=== PATIENT | female | born 1995 | race African-American/Black ===

== ENCOUNTER 2020-03-16 12:22 | Emergency (ER) | payer OTHER ==
[~2020-03-16] VITALS: Ht 162.6 cm; Wt 67.0 kg
[2020-03-16 12:35] VITALS: BP 110/75
[2020-03-16] MEDS ORDERED: PREDNISONE 20MG TABLET PO ONE (13:45)
[2020-03-16] MEDS ORDERED: FAMOTIDINE 20MG TABLET PO ONE (13:45)
== END 2020-03-16 14:20 | disposition home or self-care (01) ==
LOC: ER 12:50
DX: T78.40XA Allergy, unspecified, initial encounter (principal); X58.XXXA Exposure to other specified factors, initial encounter
CPT/HCPCS: 99283; J7512